=== PATIENT | female | born 1990 | race Caucasian/White ===

== ENCOUNTER → 2016-08-21 | Outpatient (CLI) | payer OTHER ==
[~2016-08-21] MED LIST: BACTRIM DS TABL1 TAB PO; CIPRO PO; CITALOPRAM HBR10 MG; DICYCLOMINE HCL20 MG PO; FAMOTIDINE PO; FLAGYL PO; IBUPROFEN PO; IBUPROFEN800 MG PO; LEVOXYL75 MCG PO; LORTAB 5/500 TA1 TA1; NO MEDICATIONS; NUVARING V1 VAG.RING VAG; PRENATAL1 TA1 PO; PRILOSEC20 MG PO; PYRIDIUM PO; SYNTHROID; VICODIN 5/1 TAB 5/50 PO; VOLTAREN75 MG PO; ZOFRAN ODT4 MG PO
--- NOTE | ~2016-08-21 | CR150 ---
[facility] A Service of [facility] & [facility] RADIOLOGY TEXT RESULTS PATIENT: EDELMIRA STUART LOCATION: [facility] : [birth year] UNIT #: [id number] AGE: [address]: Mitra Gusman SEX: F ORDER DR: [id number] [place] [id number] O MR#: [id number] Acc #: [id number] NAME: EDELMIRA STUART : 1990 SEX: F STUDY DATE/TIME: 08/21/2016 8:34 UNIT: [facility] ROOM: STUDY DESCRIPTION: CR Hip Min 2 Views Lt Attending Physician: Mitra Gusman A.P.R.N. Referring Physician: Mitra Gusman A.P.R.N. Ordering Physician: Mitra Gusman A.P.R.N. Primary Care Physician: Scooby Lamb M.D. MEDICAL IMAGING REPORT This report is preliminary unless electronic signature is present. EXAM Left hip 2 views, 08/21/2016 HISTORY Left hip pain for 2 weeks with no known injury. FINDINGS AP and oblique examination of the hip shows adequate mineralization of the bones and a normal anatomic relationship of the femoral head with the acetabulum. There are no hypertrophic changes, fractures, dislocation, or joint capsular distension. No radiopaque foreign body is present about the soft tissues of the hip. IMPRESSION Normal left hip. Dictated by... Jacky Fischer M.D. THIS IS AN ELECTRONICALLY VERIFIED REPORT Jacky Fischer M.D. at 08/22/2016 7:44 AM ISELA/elodia TD: 08/21/2016 10:24 JOB #: [id number] MEDICAL IMAGING REPORT Page 1 of 1
== END | disposition home or self-care (01) ==
LOC: SRAD 08:18
DX: M25.552 Pain in left hip (principal)
CPT/HCPCS: 73502

== ENCOUNTER 2016-09-12 19:08 | Emergency (ER) | payer OTHER ==
--- NOTE | ~2016-09-12 | CR2 ---
[facility] [place] [facility]IOLOGY TEXT RESULTS PATIENT: EDELMIRA STUART LOCATION: [facility] : [birth year] UNIT #: [id number] AGE: [address]: Roxann Cox SEX: F ORDER DR: [id number] [place] [id number] [facility] [place], [place] [address] [id number] E MR#: [id number] Acc #: [id number] NAME: EDELMIRA STUART : 1990 SEX: F STUDY DATE/TIME: 09/12/2016 19:20 UNIT: [facility] ROOM: STUDY DESCRIPTION: CR Abdomen Acute Series Attending Physician: Roxann Cox Pa-C Referring Physician: Bry Farmer M.D. Ordering Physician: Ed Дмитрий Wynn M.D. Primary Care Physician: Scooby Lamb M.D. MEDICAL IMAGING REPORT This report is preliminary unless electronic signature is present EXAM Acute abdominal series. DATE OF EXAM 09/12/2016 INDICATIONS 25-year-old female with abdominal pain in the upper abdomen today. REPORT Frontal chest and upright and supine views of the abdomen were performed. COMPARISON Comparison chest x-ray, 03/02/2016. FINDINGS Cardiac silhouette within normal limits. The vascularity is unremarkable. Lungs are clear. Upright view demonstrates no free air. The bowel gas pattern is nonobstructive, but nonspecific. Moderate stool burden in the colon. Postop changes of probable tubal ligation noted. No suspicious calcifications. IMPRESSION 1. Negative frontal chest. 2. No free air. 3. The bowel gas pattern is nonspecific but nonobstructive. Dictated by... Marcello Acevedo M.D. [facility] [place] [facility] RADIOLOGY TEXT RESULTS PATIENT: EDELMIRA STUART LOCATION: [facility] : [birth year] UNIT #: [id number] AGE: [address]: Roxann Cox SEX: F ORDER DR: THIS IS AN ELECTRONICALLY VERIFIED REPORT Marcello Acevedo M.D. at 09/13/2016 10:34 AM Raul TD: 09/12/2016 22:52 JOB #: [id number] MEDICAL IMAGING REPORT Page 1 of 1 COPY
[2016-09-12 18:45] LABS: URINE SOURCE CLEAN CATCH
[2016-09-12 18:52] LABS: URINE APPEARANCE CLOUDY; URINE BLOOD TRACE (NEG); URINE COLOR DK YELLOW; URINE GLUCOSE NEG (NEG); URINE KETONE TRACE (NEG); URINE LEUKOCYTE ESTERASE TRACE (NEG); URINE NITRATE NEG (NEG); URINE PROTEIN 1+ (NEG); URINE SPECIFIC GRAVITY 1.041 (1.003-1.035)
[2016-09-12 18:54] LABS: CULTURE INDICATED? YES; URINE BACTERIA AUWI 3+ (NEGATIVE); URINE SQUAMOUS EPITHELIAL CELL MOD /[HPF]
[2016-09-12 18:58] LABS: URINE BILIRUBIN NEG (NEG)
[2016-09-12 19:23] LABS: BASOPHIL% 0.5 % (0-2.5); DIFF IND NO; EOSINOPHIL# 0.2 X10e3 (0-0.7); EOSINOPHIL% 2.2 % (0.0-7.0); HEMATOCRIT 40.5 % (35.0-45.0); HEMOGLOBIN 13.5 gm/dL (12.0-16.0); LYMPHOCYTE# 2.2 X10e3 (1.0-3.5); LYMPHOCYTE% 30.4 % (17.0-45.0); MEAN CELL VOLUME 88.3 FL (83-96); MEAN CORPUSCULAR HEMOGLOBIN 29.4 PG (28-34); MEAN CORPUSCULAR HGB CONC 33.3 g/dL (30-36); MEAN PLATELET VOLUME 8.4 FL (6.5-11.5); MONOCYTE# 0.7 X10e3 (0-1.0); MONOCYTE% 9.3 % (3.0-12.0); NEUTROPHIL# 4.2 X10e3 (1.5-7.1); NEUTROPHIL% 57.6 % (40-75); PLATELET COUNT 204 X10e3 (140-420); RED BLOOD COUNT 4.59 X10e (3.90-5.30); RED CELL DISTRIBUTION WIDTH 13.1 % (11.0-15.5); WHITE BLOOD COUNT 7.2 X10e3 (4.0-10.5)
[2016-09-12 19:46] LABS: ALBUMIN SERUM 4.2 g/dL (3.5-5.0); ALKALINE PHOSPHATASE 59 U/L (32-92); ALT (SGPT) 22 U/L (10-40); AST (SGOT) 23 U/L (10-42); BILIRUBIN,TOTAL 0.3 mg/dL (0.2-2.0); BLOOD UREA NITROGEN 11 mg/dL (9-23); CALCIUM SERUM 8.9 mg/dL (8.4-10.2); CARBON DIOXIDE 24 mmol/L (22-31); CHLORIDE 105 mmol/L (100-111); GLOM FILT RATE Estimated 77.2 mL/min (>60); GLUCOSE FASTING 94 mg/dL (70-110); LIPASE 18 U/L (22-51); POTASSIUM 3.6 mmol/L (3.5-5.1); PROTEIN TOTAL SERUM 7.4 g/dL (6.0-8.3); SODIUM 138 mmol/L (135-145)
[2016-09-12 19:53] LABS: BILIRUBIN, DIRECT <0.1 mg/dL (0.0-0.2); BILIRUBIN,INDIRECT 0.2 mg/dL (0.0-0.9)
== END 2016-09-12 20:43 | disposition home or self-care (01) ==
LOC: CED 19:08
PROVIDERS: Emergency Medicine
DX: R10.9 Unspecified abdominal pain (principal); E03.9 Hypothyroidism, unspecified; F17.210 Nicotine dependence, cigarettes, uncomplicated; Z90.89 Acquired absence of other organs
CPT/HCPCS: 36415; 74022; 80048; 80076; 81003; 83690; 84703; 85025; 86677; 87086; 99284